=== PATIENT | male | born 1965 ===

== ENCOUNTER 2021-07-09 15:59 | Inpatient (IN) | payer BC ==
[2021-07-09] MEDS ORDERED: Sodium Chloride 0.9% 10 ML Syringe FLUSH PRN (16:17)
[2021-07-09] MEDS ORDERED: Apixaban 5 MG Tab PO ONE (17:28)
[2021-07-09] MEDS ORDERED: Dexamethasone 6 MG TABLET PO ONE (17:32)
[2021-07-09 18:36] LABS: CORONAVIRUS COVID-19 NAA POSITIVE (NEGATIVE)
[2021-07-09] MEDS ORDERED: REMDESIVIR 200 MG in Sodium Chloride 0.9% 250 ML IV ONE (19:30)
[2021-07-09] MEDS ORDERED: Acetaminophen 325 MG Tab PO PRN (19:30)
[2021-07-09] MEDS: cefTRIAXone 2 GM in Sodium Chloride 0.9% 100 ML IV SCH (19:38)
[2021-07-09] MEDS ORDERED: Enoxaparin 40 MG/0.4 ML Syringe SUBCUT ONE (19:40)
[2021-07-09] MEDS: Dextrose 5%-0.9% NaCl with KCl 1,000 ML IV SCH (21:22)
[2021-07-10] MEDS: Dexamethasone 10 MG/ML SDV IVPUSH SCH (08:24)
[2021-07-10] MEDS: Apixaban 5 MG Tab PO SCH ×2 (08:27→20:03)
[2021-07-10] MEDS ORDERED: Dexamethasone 6 MG TABLET PO SCH (09:00)
[2021-07-10] MEDS ORDERED: Losartan 100 MG Tab PO ONE (10:00)
[2021-07-10] MEDS: Hydrochlorothiazide 25 MG Tab PO SCH (10:50)
[2021-07-10] MEDS: Losartan 100 MG Tab PO SCH (10:50)
[2021-07-10] MEDS ORDERED: REMDESIVIR 100 MG in Sodium Chloride 0.9% 100 ML IV SCH (20:00)
[2021-07-10] MEDS: cefTRIAXone 2 GM in Sodium Chloride 0.9% 100 ML IV SCH (20:01)
[2021-07-10] MEDS: REMDESIVIR 100 MG in Sodium Chloride 0.9% 250 ML IV SCH (20:33)
[2021-07-11] MEDS: Dextrose 5%-0.9% NaCl with KCl 1,000 ML IV SCH ×2 (07:48→07:49)
[2021-07-11] MEDS: Apixaban 5 MG Tab PO SCH ×2 (08:07→20:01)
[2021-07-11] MEDS: Losartan 100 MG Tab PO SCH (08:07)
[2021-07-11] MEDS: Hydrochlorothiazide 25 MG Tab PO SCH (08:08)
[2021-07-11] MEDS: Dexamethasone 10 MG/ML SDV IVPUSH SCH (08:08)
[2021-07-11] MEDS: Albuterol 0.083% 2.5 MG/3 ML Neb Soln NEB PRN ×3 (08:19→20:14)
[2021-07-11] MEDS ORDERED: Metoprolol Tartrate 25 MG Tab PO ONE (10:30)
[2021-07-11] MEDS: Aspirin 81 MG Tab.EC PO SCH (11:34)
[2021-07-11] MEDS: cefTRIAXone 2 GM in Sodium Chloride 0.9% 100 ML IV SCH (19:52)
[2021-07-11] MEDS: Metoprolol Tartrate 25 MG Tab PO SCH (20:01)
[2021-07-11] MEDS: guaiFENesin 600 MG Tab.ER PO SCH (20:01)
[2021-07-11] MEDS: REMDESIVIR 100 MG in Sodium Chloride 0.9% 250 ML IV SCH (20:27)
[2021-07-12] MEDS: Apixaban 5 MG Tab PO SCH (08:43)
[2021-07-12] MEDS: Metoprolol Tartrate 25 MG Tab PO SCH (08:43)
[2021-07-12] MEDS: guaiFENesin 600 MG Tab.ER PO SCH (08:43)
[2021-07-12] MEDS: Losartan 100 MG Tab PO SCH (08:43)
[2021-07-12] MEDS: Aspirin 81 MG Tab.EC PO SCH (08:43)
[2021-07-12] MEDS: Hydrochlorothiazide 25 MG Tab PO SCH (08:43)
[2021-07-12] MEDS: Dexamethasone 10 MG/ML SDV IVPUSH SCH (08:44)
[2021-07-12] MEDS ORDERED: Losartan 100 MG Tab PO SCH (09:45)
[2021-07-12] MEDS ORDERED: Metoprolol Succinate 25 MG Tab.ER PO ONE (10:00)
[2021-07-12] MEDS ORDERED: Metoprolol Tartrate 25 MG Tab PO ONE (10:00)
[2021-07-12] MEDS ORDERED: Losartan 100 MG Tab PO ONE (10:15)
[2021-07-12] MEDS ORDERED: REMDESIVIR 100 MG in Sodium Chloride 0.9% 250 ML IV SCH (14:00)
[2021-07-12] MEDS ORDERED: Metoprolol Tartrate 25 MG Tab PO SCH (21:00)
[2021-07-12] MEDS ORDERED: Amoxicillin/Clavulanate K 875-125 MG Tab PO SCH (21:00)
[2021-07-13] MEDS ORDERED: Losartan 100 MG Tab PO SCH (09:00)
[2021-07-16] MEDS ORDERED: Apixaban 5 MG Tab PO SCH (21:00)
== END 2021-07-12 17:10 | disposition home or self-care (01) | DRG 137 ==
LOC: JD.ED 15:59 → JD.ICU 17:42
PROVIDERS: ADMIT Pediatrics; ATTEND Pediatrics
PROC: 8E0ZXY6 Isolation (ICD-10-PCS; 2021-07-09)
PROC: XW033E5 Introduction of Remdesivir Anti-infective into Peripheral Vein, Percutaneous Approach, New Technology Group 5 (ICD-10-PCS; principal; 2021-07-10)
PROC: 3E0333Z Introduction of Anti-inflammatory into Peripheral Vein, Percutaneous Approach (ICD-10-PCS; 2021-07-10)
DX: U07.1 COVID-19 (principal); J12.82 Pneumonia due to coronavirus disease 2019; J96.01 Acute respiratory failure with hypoxia; E87.6 Hypokalemia; I26.94 Multiple subsegmental thrombotic pulmonary emboli without acute cor pulmonale; E78.5 Hyperlipidemia, unspecified; I10 Essential (primary) hypertension; E78.2 Mixed hyperlipidemia; I71.6 Thoracoabdominal aortic aneurysm, without rupture
CPT/HCPCS: 0240U; 36415; 36600; 80053; 82728; 82803; 83605; 83735; 83880; 84145; 84443; 84484; 84550; 85025; 85027; 85379; 86140; 93005; 93010; 93306; 94640; 99285; 99285-25; A9270-GY; J0696; J1100; J1650; J3480; J7050; J8540